=== PATIENT | male | born 1960 | race Caucasian/White ===

== ENCOUNTER 2019-03-12 07:37 | Day surgery (SDC) | payer OTHER, MEDICARE ==
[2019-03-12] MEDS ORDERED: LIDOCAINE HCL/PF 2% SDV 5ML VIAL ONE (07:53)
[2019-03-12] MEDS ORDERED: PROPOFOL 20 ML ONE ×3 (07:53→08:43)
[2019-03-12 07:56] VITALS: BMI 26.7
[2019-03-12 09:05] VITALS: TEMP 98
[2019-03-12 09:27] VITALS: BP 115/78; PULSE 68
--- NOTE | 2019-03-14 13:05 | PATH ---
Surgical Pathology Report Patient Name: JAS NEWTON [facility]. Rec. #: [id number] /Age/Gender: 1960 (Age: 58) / M Account: [id number] [facility] Taken: 03/12/2019 Received: 03/12/2019 Reported: 03/14/2019 Physicians: Sylvester Price M.D. Specimen(s) Received A: BX POLYP RIGHT COLON B: TRANSVERSE COLON HOT SNARE POLYPECTOMY Clinical History History of polyps Postoperative diagnosis: Colon polyps Final Diagnosis A. RIGHT COLON, POLYP, BIOPSY: TUBULAR ADENOMA. B. TRANSVERSE COLON, POLYP, POLYPECTOMY: FRAGMENTS OF TUBULAR ADENOMA. Electronically Signed Melissa Cole M.D. Gross Description A. Received in formalin, labeled "biopsy polyp right colon" is a armando, irregular portion of soft tissue measuring 0.5 cm. in greatest dimension. The specimen is submitted in toto in one cassette. B. Received in formalin labeled "polypectomy transverse colon," is a 1.2 x 0.9 x 0.2 cm aggregate of armando, irregular to polypoid portions of soft tissue. The specimen is submitted in toto in one cassette. /03/13/2019 saudi03/13/2019
== END 2019-03-12 09:30 | disposition home or self-care (01) ==
LOC: FASU-ENDO 07:37
PROVIDERS: ATTEND Internal Medicine Gastroenterology
PROC: 0DBL8ZX Excision of Transverse Colon, Via Natural or Artificial Opening Endoscopic, Diagnostic (ICD-10-PCS; 2019-03-12)
PROC: 3E0H8GC Introduction of Other Therapeutic Substance into Lower GI, Via Natural or Artificial Opening Endoscopic (ICD-10-PCS; 2019-03-12)
PROC: 0DBK8ZX Excision of Ascending Colon, Via Natural or Artificial Opening Endoscopic, Diagnostic (ICD-10-PCS; principal; 2019-03-12 08:28)
DX: Z86.010 Personal history of colon polyps (principal); D12.2 Benign neoplasm of ascending colon; D12.3 Benign neoplasm of transverse colon
CPT/HCPCS: 88305-TC